=== PATIENT | female | born 1970 | race Caucasian/White ===

== ENCOUNTER 2024-03-23 21:43 | Emergency (ER) | payer SELFPAY ==
[~2024-03-23] VITALS: Ht 162.6 cm; Wt 78.9 kg
[2024-03-23 21:45] VITALS: BP 152/90; PULSE 101; RESP 18; TEMP 98.1; O2SAT 98
[2024-03-23 23:54] VITALS: BP 153/61; PULSE 86; RESP 16; O2SAT 100
[2024-03-24] MEDS: IBUPROFEN 600 MG TAB PO ONE
== END 2024-03-24 00:13 | disposition home or self-care (01) ==
LOC: MED 21:43
DX: S09.90XA Unspecified injury of head, initial encounter (principal); S19.9XXA Unspecified injury of neck, initial encounter; E04.1 Nontoxic single thyroid nodule; Y04.8XXA Assault by other bodily force, initial encounter; Y93.89 Activity, other specified; Y92.89 Other specified places as the place of occurrence of the external cause; Y99.8 Other external cause status
CPT/HCPCS: 70450; 72125; 99284